=== PATIENT | female | born 1980 | race Asian ===

== ENCOUNTER 2016-11-30 22:00 | Inpatient (IN) | payer MEDICAID ==
[~2016-11-30] VITALS: Ht 157.5 cm; Wt 74.5 kg
[~2016-11-30 22:00] MED LIST: PREN-43 PO
[2016-11-30] MEDS ORDERED: LACTATED RINGER'S 1,000 ML IV SCH (22:43)
[2016-11-30] MEDS ORDERED: CARBOPROST 250 MCG INJ IM PRN (23:00)
[2016-11-30] MEDS ORDERED: METHYLERGONOVINE 0.2 MG INJ IM PRN (23:00)
[2016-11-30] MEDS ORDERED: MINERAL OIL LIGHT 10 ML VIAL TOP ONE (23:00)
[2016-11-30] MEDS ORDERED: IBUPROFEN 600 MG TAB PO PRN (23:00)
[2016-11-30] MEDS ORDERED: MISOPROSTOL 200 MCG TAB PR PRN (23:00)
[2016-11-30] MEDS ORDERED: LACTATED RINGER'S 1,000 ML IV PRN (23:00)
[2016-11-30] MEDS ORDERED: OXYTOCIN 30 UNITS/LR 500 ML IV SCH (23:00)
[2016-11-30] MEDS ORDERED: ACETAMINOPHEN/CODEINE #3 TAB PO PRN (23:00)
[2016-11-30] MEDS ORDERED: OXYTOCIN 30 UNITS/LR 500 ML IV PRN (23:00)
[2016-11-30] MEDS ORDERED: BUTORPHANOL 2 MG INJ IV PRN (23:00)
[2016-11-30] MEDS ORDERED: LIDOCAINE 1% (MPF) 30 ML INJ INJ PRN (23:00)
[2016-12-01 00:10] LABS: ADD SCAN DIFF NO
[2016-12-01 00:11] VITALS: Ht 157.5 cm; Wt 74.5 kg
[2016-12-01 00:14] LABS: BASOPHILS % 0.3 % (0.0-2.0); EOSINOPHILS # 0.1 10^3/ul (0.0-0.5); EOSINOPHILS % 1.4 % (0.0-7.0); HEMATOCRIT 32.8 % (37.0-47.0); HEMOGLOBIN 11.3 g/dl (12.0-16.0); LYMPHOCYTES # 1.8 10^3/ul (0.8-2.9); LYMPHOCYTES % 18.9 % (15.0-51.0); MEAN CORPUSCULAR HEMOGLOBIN 32.2 pg (29.0-33.0); MEAN CORPUSCULAR HGB CONC 34.5 g/dl (32.0-37.0); MEAN CORPUSCULAR VOLUME 93.4 fl (82.0-101.0); MEAN PLATELET VOLUME 11.7 fl (7.4-10.4); MONOCYTE # 0.8 10^3/ul (0.3-0.9); NEUTROPHIL # 6.6 10^3/ul (1.6-7.5); NEUTROPHILS % 70.8 % (39.0-77.0); PLATELET COUNT 188 10^3/UL (140-415); RED BLOOD COUNT 3.51 10^6/ul (4.20-5.40); RED CELL DISTRIBUTION WIDTH 13.5 % (11.5-14.5); WHITE BLOOD COUNT 9.4 10^3/ul (4.8-10.8)
[2016-12-01 00:25] LABS: INR 1.01; PROTIME 13.3 Sec (12.2-14.2)
[2016-12-01 00:26] LABS: PARTIAL THROMBOPLASTIN TIME 27.7 Sec (25.0-35.0)
[2016-12-01] MEDS ORDERED: DEXTROSE 5%-LR 1,000 ML IV PRN (00:30)
[2016-12-01] MEDS ORDERED: DINOPROSTONE 10 MG VAG SUPP VAG ONE (01:00)
--- NOTE | 2016-12-01 01:20 | RADRPT ---
PROCEDURE: US OB. CLINICAL INDICATION: Labor. TECHNIQUE: Multiple sonographic images of the pelvis were obtained. Transabdominal imaging only w as performed. The images were reviewed on a PACS workstation. COMPARISON: None. FINDINGS: Single live intrauterine is identified. Cardiac activity is present with 136 beats per mi nute. There is a vertex presentation. Measurements: BPD = 37 weeks 2 days. HC = 37 weeks 1 day. AC = 38 weeks 5 days. FL = 37 weeks 6 days. Estimated gestational age of approximately 37 weeks 5 days. The estimated date of delivery is 12/17/2016. The EFW = 3420 g which is at the 46th percentile. The placenta is anterior. IMPRESSION: Single live intrauterine gestation of approximately 37 weeks 5 days. RPTAT: [facility]VK .Earnest Mendoza MD, Date Time Electronically viewed and signed by .Earnest Mendoza MD, MD on 12/01/2016 01:19 .K/
[2016-12-01] MEDS ORDERED: ACCU-CHEK XX SCH (05:00)
[2016-12-01] MEDS ORDERED: FENTAnyl 2MCG/ML-ROPIV 0.2% 100 ML ONE (05:48)
[2016-12-01] MEDS ORDERED: MINERAL OIL 30ML CUP TOP ONE (08:30)
[2016-12-01] MEDS: OXYTOCIN 30 UNITS/LR 500 ML IV SCH ×2 (09:42→11:58)
--- NOTE | 2016-12-01 09:55 | HP ---
Date/Time of Note Date/Time of Note DATE: 12/01/16 TIME: 09:51 OB - History Hx of Present Free Text/Dictation admitted for induction of the labor induction Last Menstrual Period: Mar 01, 2016 Estimated Due Date: Dec 06, 2016 : 2 Para: 1 Care: Good Care Ultrasounds: Normal mid trimester US Obstetrical Complications: Gestational Hypertension Medical Complications: None Past Family/Social History * Past Medical, Surgical, Family and Obstetric Histories reviewed from chart. Blood Type: A+ Rubella: immune RPR/VDRL: Negative GBS Status: Negative HBsAG: Negative OB Admission Exam Physical Exam HEENT: WNL Heart: Rhythm Normal Lungs: Clear, Equal Abdomen: WNL Extremities: Normal Reflexes: Normal Cervical Dilatation: None Effacement: 0% Station: -3 Membranes: Intact Heart Rate: 130's Accelerations: Accelerations Present Decelerations: No Decelerations Varibility: Marked Contractions on Admission: None Last 72 hourBlood Glucose Bedside Glucose - 72 Hours Test 12/01/16 05:20 12/01/16 07:40 Bedside Glucose 96mg/dL (70-220) 119mg/dL (70-220) Last 72 hours Lab Results CBC & BMP 11/30/16 23:45 OB Assessment/Plan Other Assessment: GDM term gestation marginal cord insertion Induction Method: per Misoprostol Protocol EMMANUELLE GAMBOA MD Dec 01, 2016 09:55
--- NOTE | 2016-12-01 09:58 | LDN ---
Date/Time of Note Date/Time of Note DATE: 12/01/16 TIME: 09:55 Delivery Summary of a viable infant Weeks of Gestation 39+ Placenta Delivered: Spontaneously, Intact & Complete Meconium: none Episiotomy: No Laceration repair: small paraurethral laceration was repaired woth 4 0 Chromic Anesthesia type: Epidural Estimated blood loss: 300 Sponge & Needle done & correct: Yes All needle counts correct: Yes Any foreign bodies felt in the: No Problems: Delivery Information Sex Sex: female Apgars 1 Minute: 8 5 Minute: 9 Suctioning Nose & mouth suctioned at ke: Yes Delee suction performed: No Umbilical Cord Umbilical cord with: 3 Vessels Cord presentations: no nuchal cord Cord Blood was obtained: Yes Mother & Baby Disposition Disposition Mom & Baby to Maternity; Good: Yes (mother and baby were recovered in good condition ) Mom transferred to: Other (maternity ) EMMANUELLE GAMBOA MD Dec 01, 2016 09:58
[2016-12-01 11:55] VITALS: BP 110/62; PULSE 87; RESP 18
[2016-12-01] MEDS ORDERED: WITCH HAZEL/GLYCERIN PAD PR PRN (12:00)
[2016-12-01] MEDS ORDERED: METHYLERGONOVINE 0.2 MG INJ IM PRN (12:00)
[2016-12-01] MEDS ORDERED: OXYTOCIN 30 UNITS/LR 500 ML IV PRN (12:00)
[2016-12-01] MEDS ORDERED: ACETAMINOPHEN/CODEINE #3 TAB PO PRN ×2 (12:00)
[2016-12-01] MEDS ORDERED: CARBOPROST 250 MCG INJ IM PRN (12:00)
[2016-12-01] MEDS ORDERED: BENZOCAINE 20% 56 ML SPRAY TOP PRN (12:00)
[2016-12-01] MEDS ORDERED: ZOLPIDEM 5 MG TAB PO PRN (12:00)
[2016-12-01] MEDS ORDERED: MISOPROSTOL 200 MCG TAB PR PRN (12:00)
[2016-12-01] MEDS ORDERED: DIBUCAINE 1% 30 GM OINT PR PRN (12:00)
[2016-12-01] MEDS ORDERED: LANOLIN 7 GM TUBE TOP PRN (12:00)
[2016-12-01] MEDS: CEPHALEXIN 500 MG CAP PO SCH ×3 (13:11→23:37)
[2016-12-01] MEDS: IBUPROFEN 600 MG TAB PO SCH ×3 (13:11→23:37)
[2016-12-01] MEDS: LACTATED RINGER'S 1,000 ML IV* SCH ×2 (15:57→19:54)
[2016-12-01 16:00] VITALS: BP 114/58; PULSE 94; RESP 18
[2016-12-01 19:35] VITALS: BP 98/59; PULSE 80; RESP 18
[2016-12-01] MEDS: SENNA/DOCUSATE NA (8.6MG/50MG) TAB PO SCH (20:49)
[2016-12-01] MEDS: MAGNESIUM HYDROXIDE 30ML CUP PO SCH (20:49)
[2016-12-02] VITALS: BP 100/60; PULSE 81; RESP 18
[2016-12-02] MEDS: LACTATED RINGER'S 1,000 ML IV* SCH (03:54)
[2016-12-02 04:50] VITALS: BP_SYST 106; PULSE 76; RESP 18
[2016-12-02] MEDS: IBUPROFEN 600 MG TAB PO SCH ×3 (06:01→17:40)
[2016-12-02] MEDS: CEPHALEXIN 500 MG CAP PO SCH ×3 (06:01→17:40)
[2016-12-02 07:45] VITALS: BP 105/59; PULSE 73; RESP 19
[2016-12-02 08:08] LABS: ADD SCAN DIFF NO
[2016-12-02 08:21] LABS: BASOPHILS % 0.2 % (0.0-2.0); EOSINOPHILS # 0.1 10^3/ul (0.0-0.5); EOSINOPHILS % 0.9 % (0.0-7.0); HEMOGLOBIN 10.2 g/dl (12.0-16.0); LYMPHOCYTES # 1.6 10^3/ul (0.8-2.9); LYMPHOCYTES % 11.9 % (15.0-51.0); MEAN CORPUSCULAR HEMOGLOBIN 32.2 pg (29.0-33.0); MEAN CORPUSCULAR VOLUME 94.6 fl (82.0-101.0); MEAN PLATELET VOLUME 11.7 fl (7.4-10.4); MONOCYTE # 0.7 10^3/ul (0.3-0.9); MONOCYTES % 5.2 % (0.0-11.0); NEUTROPHIL # 10.7 10^3/ul (1.6-7.5); NEUTROPHILS % 81.1 % (39.0-77.0); PLATELET COUNT 157 10^3/UL (140-415); RED BLOOD COUNT 3.17 10^6/ul (4.20-5.40); RED CELL DISTRIBUTION WIDTH 13.5 % (11.5-14.5); WHITE BLOOD COUNT 13.2 10^3/ul (4.8-10.8)
[2016-12-02] MEDS: MAGNESIUM HYDROXIDE 30ML CUP PO SCH ×2 (09:00→21:15)
[2016-12-02] MEDS: SENNA/DOCUSATE NA (8.6MG/50MG) TAB PO SCH ×2 (10:31→21:15)
--- NOTE | 2016-12-02 14:43 | DS ---
Date/Time of Note Date/Time of Note home next day DATE: 12/02/16 TIME: 14:42 Obstetrical Discharge Record Final Diagnosis Final Diagnosis: Term delivered Other Final Diagnosis S/P vaginal delivery Vaginal Delivery Obstetrical Delivery: Spontaneous, Laceration, Repaired Complications Gestational Diabetes Induction: Yes Condition on Discharge Physical Assessment Last Vitals: see nurses notes Voiding: Yes Bowel Movement: Yes Breast: Soft, non-tender, Filling Fundus: Firm Abdomen and Incision: soft bs + Episiotomy: NA Calf Tenderness: No Patient Condition: Good EMMANUELLE GAMBOA MD Dec 02, 2016 14:43
--- NOTE | 2016-12-02 15:03 | DS ---
Date/Time of Note Date/Time of Note home next day DATE: 12/02/16 TIME: 15:01 Obstetrical Discharge Record Final Diagnosis Final Diagnosis: Term delivered Other Final Diagnosis S/P vaginal delivery Vaginal Delivery Obstetrical Delivery: Spontaneous, Laceration, Repaired Complications Gestational Diabetes Induction: Yes Condition on Discharge Physical Assessment Last Vitals: see nurses notes Voiding: Yes Bowel Movement: Yes Breast: Soft, non-tender, Filling Fundus: Firm Abdomen and Incision: soft bs + Episiotomy: NA Calf Tenderness: No Patient Condition: Good EMMANUELLE GAMBOA MD Dec 02, 2016 15:03
--- NOTE | 2016-12-02 15:04 | PD.PPDC ---
CUSTOMER SERVICE SECURITY OFFICER Discharge Instruction Provider Information Physician Information 36 y/o female had vaginal delivery Diagnosis Final Diagnosis: S/P vaginal delivery Condition Patient Condition: Good Diet Diet: Special Diet Special Diet: 2000 stone ADA Activity/Restrictions Activity: Normal Activity May Shower Restrictions: Nothing in the Vagina Return to Work or School: Jan 16, 2017 Follow-up Follow-up with Physician: 4, Week/Weeks (in clinic ) Return to clinic for OB Instructions: Breast Tenderness Depression EMMANUELLE GAMBOA MD Dec 02, 2016 15:04
[2016-12-02] MEDS ORDERED: IBUP-1542 PO (15:05)
[2016-12-02 16:00] VITALS: BP 109/55; PULSE 74; RESP 18
--- NOTE | 2016-12-02 19:19 | NSTRPT ---
NST Information Datetime Report Generated by CPN: 12/02/2016 19:19 Datetime: 11/30/2016 08:25 NST Information EGA: 39.1 Time on Monitor: 11/30/2016 08:47 Time off Monitor: 11/30/2016 09:11 NST Duration (Min): 24 Reason for NST Other: A1DM, Marginal Cord Insertion Test and Monitor Explained: Monitor Explained; Test Explained; Verbalized Understanding; Breastfee ding Info Given Pulse: 93 Resp: 18 SBP: 101 DBP: 57 Test Evaluation NST Interventions: None Patient States Movement: Present Contraction Frequency: X2(denies) FHR Baseline : 135 Variability: Moderate 6-25bpm Accelerations: 15X15 FHR Category: Category I NST Results: Reactive Provider Notified: Dr Bravo Comments: To u/s. LEDA 14.4cm. CEPHALIC. FBS 85. 0915-Pt home undelivered with labor precautions, kick count instructions reviewed and follo w up NST appt given. States understanding and denies further questions at this time. States has appt with Dr Bravo today. Report to Dr Bravo, inc recommendation from Dr Tafti to induce at 39wks. Electronically Signed By E-Signature: with User ID: [id number] Datetime: 11/25/2016 08:20 NST Information EGA: 38.3 NST Duration (Min): 28 Datetime: 11/22/2016 08:49 NST Information EGA: 38.0 NST Duration (Min): 23 Datetime: 11/18/2016 10:32 NST Information EGA: 37.3 NST Duration (Min): 32 Datetime: 11/15/2016 10:20 NST Information EGA: 37.0 NST Duration (Min): 27 Datetime: 11/11/2016 10:15 NST Information EGA: 36.3 NST Duration (Min): 37 Datetime: 11/08/2016 10:14 NST Information EGA: 36.0 NST Duration (Min): 27 Datetime: 11/04/2016 10:25 NST Information EGA: 35.3 NST Duration (Min): 30 Datetime: 11/01/2016 11:06 NST Information EGA: 35.0 NST Duration (Min): 21 Datetime: 10/28/2016 10:30 NST Information EGA: 34.3 NST Duration (Min): 27 Datetime: 10/25/2016 10:00 NST Information EGA: 34.0 NST Duration (Min): 20 Datetime: 10/21/2016 10:12 NST Information EGA: 33.3 NST Duration (Min): 21 Datetime: 10/18/2016 10:17 NST Information EGA: 33.0 NST Duration (Min): 29 Datetime: 10/14/2016 10:18 NST Information EGA: 32.3 NST Duration (Min): 21 Datetime: 10/11/2016 10:26 NST Information EGA: 32.0 Datetime: 10/11/2016 10:20 NST Duration (Min): 31
[2016-12-02 20:00] VITALS: BP 107/66; PULSE 72
[2016-12-03] MEDS: IBUPROFEN 600 MG TAB PO SCH ×3 (00:41→12:31)
[2016-12-03] MEDS: CEPHALEXIN 500 MG CAP PO SCH ×3 (00:41→12:31)
[2016-12-03 04:10] VITALS: BP 101/48; PULSE 62; RESP 19
[2016-12-03 07:56] LABS: ADD SCAN DIFF NO
[2016-12-03 07:57] LABS: BASOPHILS % 0.3 % (0.0-2.0); EOSINOPHILS # 0.3 10^3/ul (0.0-0.5); HEMATOCRIT 32.1 % (37.0-47.0); HEMOGLOBIN 10.7 g/dl (12.0-16.0); LYMPHOCYTES % 14.5 % (15.0-51.0); MEAN CORPUSCULAR HEMOGLOBIN 31.8 pg (29.0-33.0); MEAN CORPUSCULAR HGB CONC 33.3 g/dl (32.0-37.0); MEAN CORPUSCULAR VOLUME 95.5 fl (82.0-101.0); MEAN PLATELET VOLUME 11.8 fl (7.4-10.4); MONOCYTE # 0.7 10^3/ul (0.3-0.9); MONOCYTES % 4.8 % (0.0-11.0); NEUTROPHIL # 10.5 10^3/ul (1.6-7.5); NEUTROPHILS % 77.8 % (39.0-77.0); PLATELET COUNT 156 10^3/UL (140-415); RED BLOOD COUNT 3.36 10^6/ul (4.20-5.40); RED CELL DISTRIBUTION WIDTH 13.6 % (11.5-14.5); WHITE BLOOD COUNT 13.5 10^3/ul (4.8-10.8)
[2016-12-03 08:15] VITALS: BP 117/68; PULSE 70; RESP 19
[2016-12-03] MEDS ORDERED: MEASLES,MUMPS,RUBELLA VACCINE INJ SC* ONE (09:00)
[2016-12-03] MEDS ORDERED: DIPHTH/TET/ACEL PERTUSS (ADULT) 0.5 ML VIAL IM* ONE (09:00)
[2016-12-03] MEDS ORDERED: VARICELLA VACCINE LIVE/PF 1,350 UNIT/0.5 ML ML SC* ONE (09:00)
[2016-12-03] MEDS: SENNA/DOCUSATE NA (8.6MG/50MG) TAB PO SCH (09:23)
[2016-12-03] MEDS: MAGNESIUM HYDROXIDE 30ML CUP PO SCH (09:23)
== END 2016-12-03 17:35 | disposition home or self-care (01) | DRG 775 ==
LOC: L-D 22:04 → PP1 12-01 11:48
PROVIDERS: ADMIT Obstetrics & Gynecology; ATTEND Obstetrics & Gynecology
PROC: 10E0XZZ Delivery of Products of Conception, External Approach (ICD-10-PCS; principal; 2016-12-01)
PROC: 0TQDXZZ Repair Urethra, External Approach (ICD-10-PCS; 2016-12-01)
DX: O71.5 Other obstetric injury to pelvic organs (principal); Z37.0 Single live birth; O13.4 Gestational [pregnancy-induced] hypertension without significant proteinuria, complicating childbirth; O24.429 Gestational diabetes mellitus in childbirth, unspecified control; Z3A.39 39 weeks gestation of pregnancy
CPT/HCPCS: 62319; 76815; 82947; 82962; 85025; 85610; 85730; 86592; 86900; 86901; 90715; 90716; J2590; J3010; J7120

== ENCOUNTER 2017-01-19 08:10 | Emergency (ER) | payer MEDICAID ==
[~2017-01-19] VITALS: Wt 59.1 kg
[~2017-01-19 08:10] MED LIST changes: +IBUP-1542 PO
--- NOTE | 2017-01-19 08:36 | ERD ---
ER Documentation Chief Complaint Date/Time DATE: 01/19/17 Chief Complaint Dysuria, right flank pain HPI The patient is a 36-year-old female who presents to the Emergency Department with complaint of dysuria. The patient reports her symptoms began 4 days ago, with onset of burning on urination, urinary frequency and urgency. She also notes associated pressure-like suprapubic abdominal pain, that began to radiate to the right flank since this morning. The patient noted over the past 24 hours she has been experiencing intermittent chills and nausea, but no fevers, sweats or vomiting. No new vaginal discharge. She denies any history of similar symptoms in the past. Denies any recent falls, injury or, to the abdomen or Back. She rates her current pain 6 out of 10, though has not yet taken any medication for pain relief. Of note, the patient recently delivered a baby on by normal spontaneous vaginal delivery. She is currently breast- feeding. No other complaints at this time. ROS All systems reviewed and are negative except as per history of present illness. Medications Home Meds Active Scripts Cephalexin* (Keflex*) 500 Mg Capsule, 500 MG PO QID for 7 Days, CAP Prov:YANET LATIF PA-C 01/19/17 Ibuprofen* (Ibuprofen*) 600 Mg Tablet, 600 MG PO Q6, #30 TAB 0 Refills Prov:EMMANUELLE GAMBOA MD 12/02/16 Reported Medications #48/Iron Cb&Glu/Fa/B6 (CITRANATAL B-CALM COMBO PACK) 1 Each Tablet.seq , 1 EACH PO 10/19/13 Allergies Allergies: Coded Allergies: No Known Allergy (Unverified , 10/19/13) Physical Exam Vitals Vital Signs Date Time Temp Pulse Resp B/P Pulse Ox O2 Delivery O2 Flow Rate FiO2 01/19/17 08:14 99.1 106 20 125/62 99 Physical Exam GENERAL: Well-developed, well-nourished, female, in no acute distress HEENT: Head is normocephalic, atraumatic. No scleral pallor or icterus. Pupils equal, round and reactive to light. Extraocular movements intact. Conjunctiva pink. Moist mucous membranes. NECK: Supple. Full range of motion. RESPIRATORY: Lungs are clear to auscultation bilaterally. Equal breath sounds. Normal expiratory effort. CARDIOVASCULAR: Regular rate and rhythm. S1 and S2 normal. GASTROINTESTINAL: Abdomen is soft, non-tender, and non-distended. No guarding, no rebound tenderness. Normal bowel sounds. No gross peritonitis. No tenderness at McBurney's point. FLANK: Mild right-sided CVA tenderness. No left-sided CVA tenderness. BACK: No midline tenderness. EXTREMITIES: No clubbing, cyanosis, or edema. Normal skin perfusion. Moving all extremities. Muscle tone is normal. No focal swelling or erythema. NEUROLOGIC: The patient is alert, awake, and oriented x 3. No focal neurologic deficits. INTEGUMENT: Skin is intact. Warm and dry. PSYCHIATRIC: Cooperative. Appropriate. Results 24 hrs Laboratory Tests Test 01/19/17 08:50 Bedside Urine pH (LAB) 6.5 Bedside Urine Protein (LAB) 1+ Bedside Urine Glucose (UA) Negative Bedside Urine Ketones (LAB) Negative Bedside Urine Blood 2+ Bedside Urine Nitrite (LAB) Negative Bedside Urine Leukocyte Esterase (L 3+ Current Medications Medications (Trade) Dose Ordered Sig/Elizabeth Route PRN Reason Start Time Stop Time Status Last Admin Dose Admin Ceftriaxone Sodium (Rocephin) 1 gm ONCE ONCE IM 01/19/17 09:00 01/19/17 09:01 DC 01/19/17 09:01 Lidocaine (Xylocaine 1% (Mdv) 20 ml) 20 ml ONCE ONCE SC 01/19/17 09:00 01/19/17 09:01 DC 01/19/17 09:02 Procedures/MDM Emergency Department Course: The patient was stable throughout the ER course. Urinalysis was performed. Laboratory testing offered, but patient declined, stating that she wants to get back to her child as soon as possible. On reassessment, the patient was sitting comfortably with no signs of acute distress. Urinalysis results were discussed with the patient, as well as likely diagnosis of pyelonephritis. She was given an injection of 1 g of Rocephin IM, and strict return precautions for signs of worsening condition. Medical Decision Making: This is a 36-year-old female presenting to the Emergency Department with dysuria, urinary frequency and urgency for the past 4 weeks, and right flank pain for the past day. On physical examination, the patient had mild right-sided CVA tenderness. Otherwise, she was nontoxic in appearance, with no evidence of dehydration. She was afebrile, with no tachypnea , no hypotension. The differential diagnosis includes, but is not limited to, urinary tract infection, renal abscess, perinephric abscess, urethritis, nephrolithiasis, salpingitis, cervicitis, pelvic inflammatory disease, diverticulitis, cystitis, cholecystitis, appendicitis, abdominal aortic aneurysm /dissection, pyelonephritis. Urinalysis revealed 2+ urine blood and 3+ urine leukocyte esterase, consistent with a urinary infection. Given that the patient presented with recent chills, dysuria and CVA tenderness, patient's symptoms are most consistent with acute pyelonephritis. She was given an injection of 1 g of Rocephin IM. Urine culture sent. After rest, and administration of medications and serial evaluations, the patient reports no new complaints. She continues to remain stable and nontoxic, with no signs of distress. At this time , the patient is in stable condition, and therefore can be discharged home with a prescription for Keflex and strict return precautions for signs of deteriorating or worsening condition. The patient is advised to follow up with her primary care provider within 1-2 days for reevaluation and further management, or return to the ER sooner for any worsening symptoms. I shared all laboratory results, medical decision making and plan with the patient at length and in great detail, and the patient verbally understands and agrees with the plan for further observation and care as an outpatient. At the time of discharge , all questions were answered. Departure Diagnosis: Primary Impression: Acute pyelonephritis Condition: Stable Patient Instructions: Pyelonephritis, Pyelonephritis, Female (Adult) Additional Instructions: Call your primary care doctor TOMORROW for an appointment during the next 1-2 days.See the doctor sooner or return here if your condition worsens before your appointment time. YANET LATIF PA-C Jan 19, 2017 08:36
[2017-01-19 08:44] LABS: URINE BLOOD (Dip) POC 2+ (NEGATIVE)
[2017-01-19] MEDS ORDERED: CEPH-443 PO (08:58)
[2017-01-19] MEDS ORDERED: CEFTRIAXONE 1 GM INJ IM ONE (09:00)
[2017-01-19] MEDS ORDERED: LIDOCAINE 1% (MDV) 20 ML INJ SC ONE (09:00)
== END 2017-01-19 09:36 | disposition home or self-care (01) ==
LOC: FTE 08:10
DX: N10 Acute pyelonephritis (principal); R10.2 Pelvic and perineal pain
CPT/HCPCS: 81003; 87086; 96372; J0696; Z7502; Z7610

== ENCOUNTER 2018-10-01 07:00 | Inpatient (IN) | payer MEDICAID ==
[~2018-10-01] VITALS: Ht 157.5 cm; Wt 73.1 kg
[~2018-10-01 07:00] MED LIST changes: +CEPH-443 PO
[2018-10-01 07:50] VITALS: BP 111/67; PULSE 116; Ht 157.5 cm; Wt 73.1 kg
[2018-10-01] MEDS ORDERED: OXYTOCIN 30 UNITS/LR 500 ML IV SCH ×3 (09:00→09:30)
[2018-10-01] MEDS ORDERED: LIDOCAINE 1% (MPF) 30 ML INJ INJ PRN (09:00)
[2018-10-01] MEDS ORDERED: MISOPROSTOL 200 MCG TAB PR PRN ×2 (09:00→22:00)
[2018-10-01] MEDS ORDERED: OXYTOCIN 30 UNITS/LR 500 ML IV PRN ×2 (09:00→22:00)
[2018-10-01] MEDS ORDERED: METHYLERGONOVINE 0.2 MG INJ IM PRN ×2 (09:00→22:00)
[2018-10-01] MEDS ORDERED: AMPICILLIN 2 GM/NS (PMX) 100 ML IV ONE (09:00)
[2018-10-01] MEDS ORDERED: BUTORPHANOL 2 MG INJ IV PRN (09:00)
[2018-10-01] MEDS ORDERED: CARBOPROST 250 MCG INJ IM PRN ×2 (09:00→22:00)
[2018-10-01] MEDS: LACTATED RINGER'S 1,000 ML IV SCH ×3 (10:15→17:48)
[2018-10-01] MEDS: AMPICILLIN 1 GM/NS (PMX) 50 ML IV SCH ×2 (14:00→18:14)
--- NOTE | 2018-10-01 17:05 | PREAC ---
Date/Time of Note Date/Time of Note DATE: 10/01/18 TIME: 17:04 Anesthesia Eval and Record Evaluation Time Pre-Procedure Interview DATE: 10/01/18 TIME: 17:04 Age 37 Sex female NPO: 8 hrs Preoperative diagnosis labor pain Planned procedure labor epidural Past Medical History Past Medical History: None Surgery & Anesthesia Issues No known issue Meds Anticoagulation: No Beta Godfrey within 24 hr: No Reason Beta Godfrey not given: Pt. not on B-Godfrey Reported Medications #48/Iron Cb&Glu/Fa/B6 (CITRANATAL B-CALM COMBO PACK) 1 Each Tablet.seq, 1 EACH PO 10/19/13 Discontinued Scripts Cephalexin* (Keflex*) 500 Mg Capsule, 500 MG PO QID for 7 Days, CAP Prov:YANET LATIF PA-C 01/19/17 Ibuprofen* (Ibuprofen*) 600 Mg Tablet, 600 MG PO Q6, #30 TAB 0 Refills Prov:EMMANUELLE GAMBOA MD 12/02/16 Current Medications Lactated Ringer's 1,000 ml @ 125 mls/hr Q8H IV Last administered on 10/01/18at 16:50; Admin Dose 125 MLS/HR; Start 10/01/18 at 08:45 Ampicillin 50 ml @ 100 mls/hr Q4H IV Last administered on 10/01/18at 14:00; Admin Dose 100 MLS/HR; Start 10/01/18 at 13:00 Butorphanol Tartrate (Stadol) 2 mg Q2H PRN IV .PAIN; Start 10/01/18 at 09:00 Lidocaine (Xylocaine 1% (Mpf)) 30 ml ONCE PRN INJ .EPISIOTOMY; Start 10/01/18 at 09:00 Oxytocin/Lactated Ringer's 500 ml @ 500 mls/hr ONCE POST IV ; Start 10/01/18 at 09:00 Oxytocin/Lactated Ringer's 500 ml @ 125 mls/hr POST IV ; Start 10/01/18 at 09:00 Oxytocin/Lactated Ringer's 500 ml @ 0 mls/hr ONCE PRN IV .VAGINAL BLEEDING; Start 10/01/18 at 09:00 Methylergonovine Maleate (Methergine) 0.2 mg ONCE PRN IM .VAGINAL BLEEDING; Start 10/01/18 at 09:00 Carboprost Tromethamine (Hemabate) 250 mcg ONCE PRN IM .VAGINAL BLEEDING; Start 10/01/18 at 09:00 Misoprostol (Cytotec) 1,000 mcg ONCE PRN NE .VAGINAL BLEEDING; Start 10/01/18 at 09:00 Oxytocin/Lactated Ringer's 500 ml @ 0 mls/hr FOR INDUCTION IV Last administered on 10/01/18at 10:14; Admin Dose 1 MLS/HR; Start 10/01/18 at 09:30 Meds reviewed: Yes Allergies Coded Allergies: No Known Allergy (Unverified , 10/19/13) Allergies Reviewed: Yes Labs/Studies Labs Reviewed: Reviewed by anesthesiologist Result Diagram: 10/01/18 0810 Laboratory Tests 10/01/18 08:10 Blood Bank Test 10/01/18 08:10 Antibody Screen NEGATIVE Blood Type A POSITIVE Rh Immune Globulin Candidate NO test: Positive Pre-procedure Exam Last vitals Vital Signs Date Temp Pulse Resp B/P (MAP) Pulse Ox O2 O2 Flow FiO2 Time Delivery Rate 10/01/18 98.2 116 111/67 Room Air 07:50 (82) Airway: Adequate mouth opening, Adequate thyromental dist Mallampati: Mallampati III Teeth: Normal Lung: Normal Heart: Normal ASA Physical Status ASA physical status: 2 Emergency: None Planned Anesthetic Neuraxial: Epidural Planned Pain Management Epidural, Parenteral pain med, Other neuraxial med Pre-operative Attestations Prior to commencing anesthesia and surgery, the patient was re-evaluated, there was verification of: *The patient's identity *The results of appropriate recent lab work and preoperative vital signs *The above evaluation not changing prior to induction *Anesthetic plan, risk benefits, alternative and complications discussed with patient/family; questions answered; patient/family understands, accepts and wishes to proceed. ELAINE STEWART MD Oct 01, 2018 17:05
[2018-10-01] MEDS ORDERED: DIPHENHYDRAMINE 50 MG INJ IV PRN (17:30)
[2018-10-01] MEDS ORDERED: NALOXONE (0.4 MG/ML) INJ IV PRN (17:30)
[2018-10-01] MEDS ORDERED: ZOLPIDEM 5 MG TAB PO PRN ×2 (17:30→22:00)
[2018-10-01] MEDS ORDERED: FENTAnyl 2MCG/ML-ROPIV 0.2% 100 ML BAG EPI SCH (17:30)
[2018-10-01] MEDS ORDERED: ONDANSETRON 4 MG INJ IV PRN (17:30)
[2018-10-01] MEDS ORDERED: HYDROmorphONE 0.5 MG/0.5 ML SYG IV PRN ×2 (17:30)
[2018-10-01] MEDS ORDERED: KETOROLAC 30 MG INJ IV PRN (17:30)
[2018-10-01] MEDS ORDERED: MINERAL OIL LIGHT 10 ML VIAL TOP ONE (18:30)
--- NOTE | 2018-10-01 19:19 | HP ---
Date/Time of Note Date/Time of Note DATE: 10/01/18 TIME: 19:17 OB - History Hx of Present Free Text/Dictation 37-year-old female 3 para 2 at 39+ weeks gestation admitted for elective induction of labor Last Menstrual Period: Dec 19, 2017 Estimated Due Date: Oct 05, 2018 : 3 Para: 2 Care: Good Care Ultrasounds: Normal mid trimester US Obstetrical Complications: None, Other (Advanced maternal age) Medical Complications: None Past Family/Social History * Past Medical, Surgical, Family and Obstetric Histories reviewed from chart. Blood Type: A+ Rubella: immune RPR/VDRL: Negative GBS Status: Positive HBsAG: Negative OB Admission Exam Vital Signs Vital Signs Vital Signs Date Temp Pulse Resp B/P (MAP) Pulse Ox O2 O2 Flow FiO2 Time Delivery Rate 10/01/18 98.2 116 111/67 Room Air 07:50 (82) Physical Exam HEENT: WNL Heart: Rhythm Normal Lungs: Clear, Equal Abdomen: WNL Extremities: Normal Reflexes: Normal Cervical Dilatation: 3cm Effacement: 50% Station: -3 Membranes: Intact Heart Rate: 140's Accelerations: Accelerations Present Decelerations: No Decelerations Varibility: Marked Contractions on Admission: >10 Minutes Apart Last 72 hours Lab Results CBC & BMP 10/01/18 08:10 OB Assessment/Plan Reason for admission: induction of labor Other Assessment: Term gestation For elective induction of labor Other plan: Start Pitocin augmentation of labor EMMANUELLE GAMBOA MD Oct 01, 2018 19:19
--- NOTE | 2018-10-01 19:20 | LDN ---
Date/Time of Note Date/Time of Note DATE: 10/01/18 TIME: 19:19 Delivery Summary Normal spontaneous vaginal delivery of a viable infant over intact perineum Weeks of Gestation 39 Placenta Delivered: Spontaneously, Intact & Complete Meconium: none Episiotomy: No Perineal laceration: 0 Laceration repair: Small periurethral laceration was repaired using 4-0 chromic on small half needle Anesthesia type: Local Estimated blood loss: 200 Sponge & Needle done & correct: Yes All needle counts correct: Yes Any foreign bodies felt in the: No Infant Delivery Information Sex Sex: female Apgars 1 Minute: 9 5 Minute: 9 Suctioning Nose & mouth suctioned at ke: Yes Umbilical Cord Umbilical cord with: 3 Vessels Cord presentations: no nuchal cord Cord Blood was obtained: Yes Mother & Baby Disposition Disposition Mom & Baby to Maternity; Good: Yes (Mother and were recovering in good condition) Mom transferred to: Other (Maternity) Baby to NICU: No EMMANUELLE GAMBOA MD Oct 01, 2018 19:20
[2018-10-01] MEDS ORDERED: KETOROLAC 30 MG INJ IV STA (19:21)
[2018-10-01 21:05] VITALS: BP 108/79; PULSE 63; RESP 18
[2018-10-01] MEDS ORDERED: WITCH HAZEL/GLYCERIN PAD PR PRN (22:00)
[2018-10-01] MEDS ORDERED: HYDROCODONE/APAP (5/325) TAB PO PRN (22:00)
[2018-10-01] MEDS ORDERED: LANOLIN HPA 1 PKT TOP PRN (22:00)
[2018-10-01] MEDS ORDERED: DIBUCAINE 1% 30 GM OINT TOP PRN (22:00)
[2018-10-01] MEDS ORDERED: BENZOCAINE 20% 56 ML SPRAY TOP PRN (22:00)
[2018-10-01] MEDS: LACTATED RINGER'S 1,000 ML IV* SCH (22:54)
[2018-10-01] MEDS: IBUPROFEN 600 MG TAB PO SCH (23:09)
[2018-10-02] VITALS (16 sets, daily range): BP systolic 94–118; BP diastolic 49–66; PULSE 54–87; RESP 10–19
[2018-10-02] MEDS: IBUPROFEN 600 MG TAB PO SCH ×3 (05:12→17:02)
[2018-10-02] MEDS: LACTATED RINGER'S 1,000 ML IV* SCH ×3 (05:13→21:37)
[2018-10-02] MEDS: MAGNESIUM HYDROXIDE 30ML CUP PO SCH ×2 (09:00→22:23)
[2018-10-02] MEDS: SENNA/DOCUSATE NA (8.6MG/50MG) TAB PO SCH ×2 (09:00→22:23)
[2018-10-02] MEDS ORDERED: BUPIVACAINE 0.5%/EPI (SDV) 30 ML INJ ONE (14:24)
--- NOTE | 2018-10-02 14:55 | PREAC ---
Date/Time of Note Date/Time of Note DATE: 10/02/18 TIME: 14:53 Anesthesia Eval and Record Evaluation Time Pre-Procedure Interview DATE: 10/02/18 TIME: 14:53 Age 37 Sex female NPO: 8 hrs Preoperative diagnosis Sterilization Planned procedure BTL Past Medical History Past Medical History: None Surgery & Anesthesia Issues No known issue Meds Anticoagulation: No Beta Godfrey within 24 hr: No Reason Beta Godfrey not given: Pt. not on B-Godfrey Reported Medications #48/Iron Cb&Glu/Fa/B6 (CITRANATAL B-CALM COMBO PACK) 1 Each Tablet.seq, 1 EACH PO 10/19/13 Discontinued Scripts Cephalexin* (Keflex*) 500 Mg Capsule, 500 MG PO QID for 7 Days, CAP Prov:YANET LATIF PA-C 01/19/17 Ibuprofen* (Ibuprofen*) 600 Mg Tablet, 600 MG PO Q6, #30 TAB 0 Refills Prov:EMMANUELLE GAMBOA MD 12/02/16 Current Medications Lactated Ringer's 1,000 ml @ 125 mls/hr Q8H IV* Last administered on 10/02/18at 12:47; Admin Dose 125 MLS/HR; Start 10/01/18 at 21:37 Ibuprofen (Motrin) 600 mg Q6 PO Last administered on 10/02/18at 05:12; Admin Dose 600 MG; Start 10/02/18 at 00:00 Acetaminophen/ Hydrocodone Bitart ([place] (5/325)) 1 tab Q4H PRN PO .PAIN 1-5; Start 10/01/18 at 22:00 Acetaminophen/ Hydrocodone Bitart ([place] (5/325)) 2 tab Q4H PRN PO .PAIN 6-10; Start 10/01/18 at 22:00 Zolpidem Tartrate (Ambien) 5 mg QHS PRN PO .INSOMNIA; Start 10/01/18 at 22:00 Senna/Docusate Sodium (Senokot-S) 1 tab BID PO ; Start 10/02/18 at 09:00 Magnesium Hydroxide (Milk Of Mag) 30 ml Q12 PO ; Start 10/02/18 at 09:00 Witch Radha/ Glycerin (Tucks Pads) 1 pad BEDSIDE MEDICATION PRN DC .HEMORRHOID/EPISIOTOMY PAIN Last administered on 10/01/18at 23:08; Admin Dose 40 PAD; Start 10/01/18 at 22:00 Benzocaine (Dermoplast [place]) 1 spray BEDSIDE MEDICATION PRN TOP .HEMMORHOID/EPISIOTOMY PAIN Last administered on 10/01/18at 23:09; Admin Dose 56 SPRAY; Start 10/01/18 at 22:00 Dibucaine (Nupercainal) 1 applic BEDSIDE MEDICATION PRN TOP .HEMMORHOID/EPISIOTOMY Last administered on 10/01/18at 23:09; Admin Dose 30 APPLIC; Start 10/01/18 at 22:00 Lanolin (Lanolin Hpa) 1 applic BEDSIDE MEDICATION PRN TOP .NIPPLES; Start 10/01/18 at 22:00 Measles/Mumps/ Rubella Vaccine Live (Mmr Ii Vaccine) 0.5 ml ONCE ONCE SC* ; Start 10/03/18 at 09:00; Stop 10/03/18 at 09:01 Diphtheria/ Tetanus/Acell Pertussis (Adacel) 0.5 ml ONCE ONCE IM* ; Start 10/03/18 at 09:00; Stop 10/03/18 at 09:01 Varicella Virus Vaccine Live (Varivax Vaccine With Diluent) 1,350 unit ONCE ONCE SC* ; Start 10/03/18 at 09:00; Stop 10/03/18 at 09:01 Oxytocin/Lactated Ringer's 500 ml @ 0 mls/hr ONCE PRN IV .VAGINAL BLEEDING; Start 10/01/18 at 22:00 Methylergonovine Maleate (Methergine) 0.2 mg ONCE PRN IM .VAGINAL BLEEDING; Start 10/01/18 at 22:00 Carboprost Tromethamine (Hemabate) 250 mcg ONCE PRN IM .VAGINAL BLEEDING; Start 10/01/18 at 22:00 Misoprostol (Cytotec) 1,000 mcg ONCE PRN DC .VAGINAL BLEEDING; Start 10/01/18 at 22:00 Meds reviewed: Yes Allergies Coded Allergies: No Known Allergy (Unverified , 10/19/13) Allergies Reviewed: Yes Labs/Studies Labs Reviewed: Reviewed by anesthesiologist Result Diagram: 10/02/18 0709 Laboratory Tests 10/02/18 07:09 test: Negative Pre-procedure Exam Last vitals Vital Signs Date Temp Pulse Resp B/P (MAP) Pulse Ox O2 O2 Flow FiO2 Time Delivery Rate 10/02/18 97.9 65 18 106/63 Room Air 14:21 (77) Airway: Adequate mouth opening, Adequate thyromental dist Mallampati: Mallampati II Teeth: Normal Lung: Normal Heart: Normal ASA Physical Status ASA physical status: 2 Emergency: None Planned Anesthetic General/MAC: ETT Planned Pain Management Parenteral pain med Pre-operative Attestations Prior to commencing anesthesia and surgery, the patient was re-evaluated, there was verification of: *The patient's identity *The results of appropriate recent lab work and preoperative vital signs *The above evaluation not changing prior to induction *Anesthetic plan, risk benefits, alternative and complications discussed with patient/family; questions answered; patient/family understands, accepts and wishes to proceed. DANIEL MADRIGAL MD Oct 02, 2018 14:55
--- NOTE | 2018-10-02 14:59 | PN ---
Date/Time of Note Date/Time of Note DATE: 10/02/18 TIME: 14:57 Assessment/Plan VTE Prophylaxis Risk score (from [facility])>0 risk: 1 SCD applied (from [facility]): No SCD contraindicated: low risk/ambulating Pharmacological prophylaxis: NA/contraindicated Pharm contraindication: low risk/ambulating Lines/Catheters IV C[facility]ter Type (from [facility]): Peripheral IV Assessment/Plan Assessment/Plan Multiparity with desire for sterilization We will proceed with bilateral tubal ligation Result Diagram: 10/02/18 0709 Results 24hrs Laboratory Tests Test 10/02/18 06:38 10/02/18 07:09 Lab Scanned Report REFERENCE LAB White Blood Count 9.9 # Red Blood Count 3.20 L Hemoglobin 9.9 L Hematocrit 30.3 L Mean Corpuscular Volume 94.7 Mean Corpuscular Hemoglobin 30.9 Mean Corpuscular Hemoglobin Concent 32.7 Red Cell Distribution Width 13.0 Platelet Count 145 Mean Platelet Volume 12.0 H Immature Granulocytes % 0.400 Neutrophils % 75.7 Lymphocytes % 14.7 L Monocytes % 7.3 Eosinophils % 1.6 Basophils % 0.3 Nucleated Red Blood Cells % 0.0 Immature Granulocytes # 0.040 H Neutrophils # 7.5 Lymphocytes # 1.5 Monocytes # 0.7 Eosinophils # 0.2 Basophils # 0.0 Nucleated Red Blood Cells # 0.0 Subjective 24 Hr Interval Summary Free Text/Dictation 37-year-old female had vaginal delivery currently has desire for sterilization Constitutional: no complaints, improved Eyes: no complaints ENT: no complaints Respiratory: no complaints Cardiovascular: no complaints Gastrointestinal: no complaints Genitourinary: no complaints Musculoskeletal: no complaints Skin: no complaints Neurologic: no complaints Endocrine: no complaints Lymphatic: no complaints Psychological: no complaints, nl mood/affect Immunologic: no complaints Exam/Review of Systems Exam Vitals Vital Signs Date Temp Pulse Resp B/P (MAP) Pulse Ox O2 O2 Flow FiO2 Time Delivery Rate 10/02/18 97.9 65 18 106/63 Room Air 14:21 (77) Intake and Output 10/01/18 10/01/18 10/02/18 1515:00 23:00 07:00 OutputOutput Total 800 ml BalanceBalance -800 ml Exam She does not appear to be in any acute distress Constitutional: alert, oriented, well developed Psych: no complaints, nl mood/affect Head: normocephalic, atraumatic Eyes: nl conjunctiva, EOMI, nl lids, nl sclera, PERRL ENMT: nl external ears & nose, nl lips & teeth, nl nasal mucosa & septum Neck: supple, non-tender Respiratory: clear to auscultation, normal air movement Cardiovascular: regular rate and rhythm, nl pulses Gastrointestinal: soft, nl liver, spleen, non-tender Genitourinary - Female: uterus (Fundus is firm) Musculoskeletal: nl extremities to inspection, nl gait and stance Extremities: normal pulses Neurological: HVAC SERVICE TECH II-XII intact, nl mental status, nl speech, nl strength Skin: nl turgor; No rash or lesions Lymph: nl lymph nodes Results Results 24hrs Laboratory Tests Test 10/02/18 06:38 10/02/18 07:09 Lab Scanned Report REFERENCE LAB White Blood Count 9.9 # Red Blood Count 3.20 L Hemoglobin 9.9 L Hematocrit 30.3 L Mean Corpuscular Volume 94.7 Mean Corpuscular Hemoglobin 30.9 Mean Corpuscular Hemoglobin Concent 32.7 Red Cell Distribution Width 13.0 Platelet Count 145 Mean Platelet Volume 12.0 H Immature Granulocytes % 0.400 Neutrophils % 75.7 Lymphocytes % 14.7 L Monocytes % 7.3 Eosinophils % 1.6 Basophils % 0.3 Nucleated Red Blood Cells % 0.0 Immature Granulocytes # 0.040 H Neutrophils # 7.5 Lymphocytes # 1.5 Monocytes # 0.7 Eosinophils # 0.2 Basophils # 0.0 Nucleated Red Blood Cells # 0.0 Medications Medication Current Medications Lactated Ringer's 1,000 ml @ 125 mls/hr Q8H IV* Last administered on 10/02/18at 12:47; Admin Dose 125 MLS/HR; Start 10/01/18 at 21:37 Ibuprofen (Motrin) 600 mg Q6 PO Last administered on 10/02/18at 05:12; Admin Dose 600 MG; Start 10/02/18 at 00:00 Acetaminophen/ Hydrocodone Bitart ([place] (5/325)) 1 tab Q4H PRN PO .PAIN 1-5; Start 10/01/18 at 22:00 Acetaminophen/ Hydrocodone Bitart ([place] (5/325)) 2 tab Q4H PRN PO .PAIN 6-10; Start 10/01/18 at 22:00 Zolpidem Tartrate (Ambien) 5 mg QHS PRN PO .INSOMNIA; Start 10/01/18 at 22:00 Senna/Docusate Sodium (Senokot-S) 1 tab BID PO ; Start 10/02/18 at 09:00 Magnesium Hydroxide (Milk Of Mag) 30 ml Q12 PO ; Start 10/02/18 at 09:00 Witch Radha/ Glycerin (Tucks Pads) 1 pad BEDSIDE MEDICATION PRN WI .HEMORRHOID/EPISIOTOMY PAIN Last administered on 10/01/18at 23:08; Admin Dose 40 PAD; Start 10/01/18 at 22:00 Benzocaine (Dermoplast [place]) 1 spray BEDSIDE MEDICATION PRN TOP .HEMMORHOID/EPISIOTOMY PAIN Last administered on 10/01/18at 23:09; Admin Dose 56 SPRAY; Start 10/01/18 at 22:00 Dibucaine (Nupercainal) 1 applic BEDSIDE MEDICATION PRN TOP .HEMMOR HOID/EPISIOTOMY Last administered on 10/01/18at 23:09; Admin Dose 30 APPLIC; Start 10/01/18 at 22:00 Lanolin (Lanolin Hpa) 1 applic BEDSIDE MEDICATION PRN TOP .NIPPLES; Start 10/01/18 at 22:00 Measles/Mumps/ Rubella Vaccine Live (Mmr Ii Vaccine) 0.5 ml ONCE ONCE SC* ; Start 10/03/18 at 09:00; Stop 10/03/18 at 09:01 Diphtheria/ Tetanus/Acell Pertussis (Adacel) 0.5 ml ONCE ONCE IM* ; Start 10/03/18 at 09:00; Stop 10/03/18 at 09:01 Varicella Virus Vaccine Live (Varivax Vaccine With Diluent) 1,350 unit ONCE ONCE SC* ; Start 10/03/18 at 09:00; Stop 10/03/18 at 09:01 Oxytocin/Lactated Ringer's 500 ml @ 0 mls/hr ONCE PRN IV .VAGINAL BLEEDING; Start 10/01/18 at 22:00 Methylergonovine Maleate (Methergine) 0.2 mg ONCE PRN IM .VAGINAL BLEEDING; Start 10/01/18 at 22:00 Carboprost Tromethamine (Hemabate) 250 mcg ONCE PRN IM .VAGINAL BLEEDING; Start 10/01/18 at 22:00 Misoprostol (Cytotec) 1,000 mcg ONCE PRN WI .VAGINAL BLEEDING; Start 10/01/18 at 22:00 EMMANUELLE GAMBOA MD Oct 02, 2018 14:59
[2018-10-02] MEDS ORDERED: MIDAZOLAM 1 MG/ML 2 ML INJ ONE (15:02)
[2018-10-02] MEDS ORDERED: FENTAnyl 50 MCG/ML VIAL ONE ×2 (15:03→16:00)
[2018-10-02] MEDS ORDERED: PROPOFOL 20 ML ONE (15:53)
[2018-10-02] MEDS ORDERED: LIDOCAINE 2% (SDV) 5 ML INJ ONE (15:53)
[2018-10-02] MEDS ORDERED: ROCURONIUM 50 MG INJ ONE (15:53)
[2018-10-02] MEDS ORDERED: NEOSTIGMINE 3 MG/3 ML SYRINGE ONE (15:54)
[2018-10-02] MEDS ORDERED: GLYCOPYRROLATE 0.4 MG INJ ONE (15:54)
[2018-10-02] MEDS ORDERED: CEFAZOLIN 1 GM INJ ONE (15:54)
[2018-10-02] MEDS ORDERED: BUTORPHANOL 2 MG INJ IM ONE (16:00)
[2018-10-02] MEDS ORDERED: KETOROLAC 30 MG INJ IM STA (16:00)
[2018-10-02] MEDS ORDERED: ONDANSETRON 4 MG INJ ONE (16:01)
[2018-10-02] MEDS ORDERED: KETOROLAC 30 MG INJ ONE (16:05)
--- NOTE | 2018-10-02 16:05 | OPR ---
Operative Report Planned Procedure Procedure date Oct 02, 2018 Procedure(s) Bilateral tubal ligation Performed by see signature line Anesthesiologist: DANIEL MADRIGAL MD Pre-procedure diagnosis Status post vaginal delivery Multiparity with desire for sterilization [id number] Anesthesia Type: [id number] general Post-Procedure Post-procedure diagnosis Status post bilateral tubal ligation Findings Normal-appearing right and left fallopian tubes and ovaries Estimated Blood Loss: minimal Specimen(s) none Grafts/Implant(s) none Complication(s) none Pt Condition post procedure: stable Disposition: PACU Procedure Description The patient was placed on the OR table in supine position. Spinal anesthesia was placed. A Mooney catheter was then inserted into urinary bladder under aseptic condition. After induction of spinal anesthesia, with the patient in supine position, abdominal area was prepped and draped for usual tubal ligation procedure. Under satisfactory anesthesia, a small incision 2 to 3 cm in length was placed just below belly button, incision extended laterally to 1.5 cm lateral to the linea nigra on either side. Incision was carried down with sharp and blunt dissection until fascia was reached. Anterior recti muscle fascia was incised in the midportion. Incision extended laterally to the border of the skin incision. Peritoneum was visualized. Avoiding bowel or bladder, incision was made in peritoneum, which was extended laterally to the border of the skin incision. Two [employer] retractors were placed inside the incision. Incision was brought up to the level of the left fallopian tube. Fallopian tube was raised in the mid portion. A clamp was placed below the fimbriated end, most of the fallopian tube from the mesosalpinx traversing the isthmus portion of the tube. Another clamp was placed just below the first and 0 Vicryl tie was used to tie the mesosalpinx and the stump of the fallopian tube on the proximal side. Another stitch of the same kind was used for adequate hemostasis. Hemostasis appeared to be secure on ligated sites of the fallopian tube. Tube was incised above the stitched area. Same procedure was done on the fallopian tube on opposite side. Hemostasis appeared to be secure on ligated sites of either fallopian tubes. Ovaries were within normal limits. Uterus kurt ears to be size. Announcing needle, lap, sponge and instrument count to be correct, abdomen was closed in layers as follows: Peritoneum with running stitches of #1 Vicryl, fascia edges of #1 Vicryl, subcutaneous tissue with running stitches of #1 Vicryl, and skin was reapproximated using subcuticular stitches of 4-0 Monocryl on a PS2 needle and also Dermabond was placed on the incision. The patient tolerated the procedure very well and was transferred to postanesthesia recovery room in stable and good condition. ESTIMATED BLOOD LOSS: Less than 5 mL. EMMANUELLE GAMBOA MD Oct 02, 2018 16:05
--- NOTE | 2018-10-02 16:06 | PD.PPDC ---
AEROSPACE PROJECT MANAGER Discharge Instruction Provider Information Physician Information 37-year-old female vaginal delivery and tubal ligation Diagnosis [id number] Final Diagnosis: Owtux3s Status post vaginal delivery and tubal ligation Condition [id number] Patient Condition: Sotxx3q Good Diet Tdrse0Zz Diet: Dbwje2p Resume Regular Diet Activity/Restrictions Iollf1No Activity: Tyvqj3d May Shower Fdjui1Om Restrictions: Aktoe0n No Exercising No Lifting Nothing in the Vagina [id number] Return to Work or School: Kbyci8u November 20, 2018 Wound/Drain Care Instructions [id number] Wound/Drain Care Instructions: Bytuj5l Keep clean and dry Follow-up Follow-up with Physician: 2, 4, Week/Weeks (In clinic) Return to clinic for Lqxlh6Md OB Instructions: Nmgfp7s Breast Tenderness Depression Comment: Pelvic rest and no hard activity for 6 weeks EMMANUELLE GAMBOA MD Oct 02, 2018 16:06
--- NOTE | 2018-10-02 16:16 | PAC ---
Date/Time of Note Date/Time of Note DATE: 10/02/18 TIME: 16:15 Post-Anesthesia Notes Post-Anesthesia Note Last documented vital signs Vital Signs Date Temp Pulse Resp B/P (MAP) Pulse Ox O2 O2 Flow FiO2 Time Delivery Rate 10/02/18 97.9 65 18 106/63 Room Air 14:21 (77) Activity: WNL Respiratory function: WNL Cardiovascular function: WNL Mental status: Baseline Pain reasonably controlled: Yes Hydration appropriate: Yes Nausea/Vomiting absent: Yes Comments BP:118/56, P:69, Spo2:100%, T:98, DANIEL MADRIGAL MD Oct 02, 2018 16:16
[2018-10-02] MEDS ORDERED: ACET325T33 PO (16:21)
[2018-10-02] MEDS ORDERED: IBUP-1542 PO (16:23)
[2018-10-02] MEDS ORDERED: ONDANSETRON 4 MG INJ IV PRN (16:30)
[2018-10-02] MEDS ORDERED: MEPERIDINE 25 MG INJ IV PRN (16:30)
[2018-10-02] MEDS ORDERED: FENTAnyl 50 MCG/ML VIAL IV PRN (16:30)
[2018-10-02] MEDS ORDERED: DIPHENHYDRAMINE 50 MG INJ IV PRN (16:30)
[2018-10-02] MEDS ORDERED: HYDROmorphONE 1 MG/5 ML IV SYRINGE IV PRN ×2 (16:30)
[2018-10-02] MEDS ORDERED: ACETAMINOPHEN 325 MG TAB PO SCH (16:30)
[2018-10-02] MEDS ORDERED: METOCLOPRAMIDE 10 MG INJ IV PRN (16:30)
[2018-10-02] MEDS ORDERED: ACETAMINOPHEN 325 MG TAB PO PRN (16:30)
[2018-10-02] MEDS: LACTATED RINGER'S 1,000 ML IV SCH (16:43)
[2018-10-03] MEDS: LACTATED RINGER'S 1,000 ML IV SCH ×2 (02:00→12:00)
[2018-10-03 04:00] VITALS: BP 101/58; PULSE 69; RESP 19
[2018-10-03] MEDS: LACTATED RINGER'S 1,000 ML IV* SCH ×2 (05:37→13:01)
[2018-10-03] MEDS: IBUPROFEN 600 MG TAB PO SCH ×4 (06:26→14:52)
--- NOTE | 2018-10-03 07:25 | PAC ---
Date/Time of Note Date/Time of Note DATE: 10/03/18 TIME: 07:25 Post-Anesthesia Notes Post-Anesthesia Note Last documented vital signs Vital Signs Date Temp Pulse Resp B/P (MAP) Pulse Ox O2 O2 Flow FiO2 Time Delivery Rate 10/03/18 97.9 69 19 101/58 04:00 (72) 10/02/18 98 Room Air 17:45 Activity: WNL Respiratory function: WNL Cardiovascular function: WNL Mental status: Baseline Pain reasonably controlled: Yes Hydration appropriate: Yes Nausea/Vomiting absent: Yes ELAINE STEWART MD Oct 03, 2018 07:25
[2018-10-03 08:00] VITALS: BP 108/74; PULSE 71; RESP 18
[2018-10-03] MEDS ORDERED: MEASLES,MUMPS,RUBELLA VACCINE INJ SC* ONE (09:00)
[2018-10-03] MEDS ORDERED: DIPHTH/TET/ACEL PERTUSS (ADULT) 0.5 ML VIAL IM* ONE (09:00)
[2018-10-03] MEDS ORDERED: VARICELLA VACCINE LIVE/PF 1,350 UNIT/0.5 ML ML SC* ONE (09:00)
[2018-10-03] MEDS: SENNA/DOCUSATE NA (8.6MG/50MG) TAB PO SCH (10:36)
[2018-10-03] MEDS: HYDROCODONE/APAP (5/325) TAB PO PRN ×2 (10:36→17:40)
[2018-10-03] MEDS: MAGNESIUM HYDROXIDE 30ML CUP PO SCH (10:37)
[2018-10-03 16:00] VITALS: BP 113/60; PULSE 65; RESP 18
--- NOTE | 2018-10-04 18:26 | DELSUM ---
Delivery Summary A-C Datetime Report Generated by CPN: 10/04/2018 18:26 DELIVERY PERSONNEL Field Installer: Ghukasyan, Deborah MATERNAL INFORMATION Delivery Anesthesia: Local Medications in Delivery: 30 units of pit in 500 cc lr Delivery QBL (ml): 300 Placenta Cultured: No Maternal Complications: None RN Comments: term baby scheduled induction LABOR SUMMARY EDC: 10/05/2018 00:00 No. Babies in Womb: 1 Attempted: No Labor Anesthesia: None LABOR INFORMATION Reason for Induction: Other Reason for Induction- Other: term Onset of Labor: 10/01/2018 16:30 Complete Dilatation: 10/01/2018 17:50 Oxytocin: Induction Group B Beta Strep: Positive Antibiotics # of Doses: 3 Antibiotics Time of Last Dose: 10/01/2018 18:00 Steroids Given: None Reason Steroids Not Administered: Not Applicable MEMBRANES Membranes Rupture Method: Spontaneous Rupture of Membranes: 10/01/2018 17:49 Length of Rupture (hr): 1.12 Amniotic Fluid Color: Clear Amniotic Fluid Amount: Small Amniotic Fluid Odor: None STAGES OF LABOR Stage 1 hr: 1 Stage 1 min: 20 Stage 2 hr: 1 Stage 2 min: 6 Stage 3 hr: 0 Stage 3 min: 2 Total Time in Labor hr: 2 Total Time in Labor min: 28 VAGINAL DELIVERY Episiotomy: None Laceration Extension: First Degree Laceration Type: Perineal Laceration Repair: Yes Initial Vag Sponge Count: 10 Final Vag Sponge Count: 10 Initial Vag Sharps Count: 1 Final Vag Sharps Count: 2 Sponge Count Correct: Yes Sharps Count Correct: Yes Count Comment: 1 sharp added during delivery BABY A INFORMATION Infant Delivery Date/Time: 10/01/2018 18:56 Method of Delivery: Vaginal Born in Route : No : N/A Forceps: N/A Vacuum Extraction: N/A Shoulder Dystocia : N/A SHOULDER DYSTOCIA BABY A Infant Delivery Date/Time: 10/01/2018 18:56 PRESENTATION/POSITION BABY A Presentation: Cephalic Cephalic Presentation: Vertex Vertex Position: Left Occipital Anterior Breech Presentation: N/A PLACENTA INFORMATION BABY A Placenta Delivery Time : 10/01/2018 18:58 Placenta Method of Delivery: Spontaneous Placenta Status: Delivered SCORES BABY A Heart Rate 1 min: >100 bpm Resp Effort 1 min: Good Cry Reflex Irritability 1 min: Cough/Sneeze/Pulls Away Muscle Tone 1 min: Active Motion Color 1 min: Blue/Pale Resuscitation Effort 1 min: Tactile Stimulation SCORE 1 MIN: 8 Heart Rate 5 min: >100 bpm Resp Effort 5 min: Good Cry Reflex Irritability 5 min: Cough/Sneeze/Pulls Away Muscle Tone 5 min: Active Motion Color 5 min: Body [place], Extremit Blue Resuscitation Effort 5 min: Tactile Stimulation SCORE 5 MIN: 9 INFORMATION BABY A Gestational Age at Delivery: 39.3 Gestational Status: Full Term- 39- 40.6 Weeks Outcome : Liveborn Infant Condition : Stable Infant Sex: Female IDENTIFICATION/MEDS BABY A ID Band Number: [id number] ID Band Location: Right Leg; Left Arm Sensor Applied: Yes Sensor Number: [id number] Sensor Location : Cord Clamp Vitamin K Given : Not Given Erythromycin Given: Not Given WEIGHT/LENGTH BABY A Infant Birthweight (gm): 3330 Infant Weight (lb): 7 Weight (oz): 5 Infant Length (in): 19.50 Length (cm): 49.53 CORD INFORMATION BABY A No. Cord Vessels: 3 Nuchal Cord : N/A Cord Blood Taken: Yes Infant Suction: Mouth; Nose ASSESSMENT BABY A Complications: None Physical Findings at Delivery: Within Normal Limits Respirations: Appears Normal Porcelain Enamel Repairer/ALS Called : No Infant Care By: Crystal PHILIP RN Transferred To: Remains with Mother
--- NOTE | 2018-10-04 23:00 | NSTRPT ---
NST Information Datetime Report Generated by CPN: 10/04/2018 23:00 Datetime: 09/25/2018 10:20 NST Information EGA: 38.4 Test Number: 7 Time on Monitor: 09/25/2018 10:50 Time off Monitor: 09/25/2018 11:30 NST Duration (Min): 40 Reason for NST: Other Reason for NST Other: elevated Inhibin Test and Monitor Explained: Monitor Explained; Test Explained; Verbalized Understanding Pulse: 87 Resp: 18 SBP: 102 DBP: 56 Test Evaluation NST Interventions: Reposition Patient Patient States Movement: Present Contraction Frequency: NONE FHR Baseline : 135 Variability: Moderate 6-25bpm Accelerations: 15X15 Decelerations: None FHR Category: Category I NST Results: Reactive Comments: To u/s LEDA 17.3 CM CEPHALIC Electronically Signed By E-Signature: with User ID: [id number] Datetime: 09/18/2018 10:01 NST Information EGA: 37.4 NST Duration (Min): 21 Datetime: 09/11/2018 10:11 NST Information EGA: 36.4 NST Duration (Min): 23 Datetime: 09/04/2018 10:20 NST Information EGA: 35.4 NST Duration (Min): 43 Datetime: 08/28/2018 10:08 NST Information EGA: 34.4 NST Duration (Min): 29 Datetime: 08/22/2018 10:10 NST Information EGA: 33.5 NST Duration (Min): 97 Datetime: 08/14/2018 10:17 NST Information EGA: 32.4 NST Duration (Min): 45
== END 2018-10-03 18:20 | disposition home or self-care (01) | DRG 798 ==
LOC: L-D 07:43 → PP1 21:09
PROVIDERS: ADMIT Obstetrics & Gynecology; ATTEND Obstetrics & Gynecology
PROC: 0HQ9XZZ Repair Perineum Skin, External Approach (ICD-10-PCS; 2018-10-01)
PROC: 10E0XZZ Delivery of Products of Conception, External Approach (ICD-10-PCS; principal; 2018-10-01 07:00)
PROC: 0UL70ZZ Occlusion of Bilateral Fallopian Tubes, Open Approach (ICD-10-PCS; 2018-10-02)
DX: O70.0 First degree perineal laceration during delivery (principal); Z37.0 Single live birth; Z3A.39 39 weeks gestation of pregnancy; Z30.2 Encounter for sterilization
CPT/HCPCS: 85025; 85610; 85730; 86592; 86850; 86900; 86901; 87340; 88302; 90716; J0290; J0595; J0690; J1885; J2250; J2405; J2590; J2710; J3010; J7120